=== PATIENT | male | born 1980 ===

== ENCOUNTER 2021-05-17 06:45 | Day surgery (SDC) | payer OTHER ==
[~2021-05-17] VITALS: Ht 167.6 cm; Wt 75.0 kg
[~2021-05-17 06:45] MED LIST: ACETAMINOPHEN 500 MG TABLET PO ONE; ALBU2.5V8 INH; DOCU100C28 PO; FAMO20TA5 PO; FLUT1AER8 IH; IBUP-1027 PO; IPRA0.2S5 IH; IV RINGERS,LACTATED 1000ML 1,000 ML IV SCH; PROCHLORPERAZINE 10 MG/2 ML VIAL. IVP PRN; ceFAZolin SODIUM IV Push 1 GM VIAL. IVP ONE; fentaNYL PF VIAL 100 MCG/2 ML VIAL IVP PRN
[2021-05-17] MEDS ORDERED: fentaNYL PF VIAL 100 MCG/2 ML VIAL ONE ×2 (06:51→07:58)
[2021-05-17] MEDS ORDERED: ROCURONIUM 50 MG/5 ML VIAL. ONE (06:51)
[2021-05-17] MEDS ORDERED: MIDAZOLAM HCL/PF 2 MG/2 ML VIAL. ONE (06:51)
[2021-05-17 06:56] VITALS: BP 131/81
[2021-05-17] MEDS ORDERED: DEXAMETHASONE SOD PHOS 4 MG/ML VIAL ONE (06:56)
[2021-05-17] MEDS ORDERED: PROPOFOL 10 MG/ML (20ML) VIAL. IV ONE (06:56)
[2021-05-17] MEDS ORDERED: ONDANSETRON PF 4 MG/2 ML VIAL. ONE ×2 (06:56→08:51)
[2021-05-17] MEDS ORDERED: LIDOCAINE 2% PF 5 ML VIAL. ONE (06:56)
[2021-05-17] MEDS ORDERED: SURGICEL HEMOSTAT 4X8 EACH. ONE (07:05)
[2021-05-17] MEDS ORDERED: BUPIVACAINE-EPI 0.25%-1:200000 MPF 30 ML VIAL. ONE (07:05)
[2021-05-17] MEDS ORDERED: GLYCOPYRROLATE 1 MG/5 ML VIAL. ONE (08:16)
[2021-05-17] MEDS ORDERED: NEOSTIGMINE METHYLSULFATE 5 MG/5 ML SYRINGE. ONE (08:16)
--- NOTE | 2021-05-17 08:24 | PDOC4 ---
Operative Note Operative Note Date: May 172020 at 820 Preoperative diagnosis: Chronic cholecystitis cholelithiasis Postoperative diagnosis: Same Procedure: Laparoscopic cholecystectomy with fluorescein cholangiography Surgeon: Henrique Specimen: Gallbladder Dictation: Patient is a 41-year-old male with complaints of right upper quadrant abdominal pain ultrasound showing porcelain gallbladder with stones. Procedure of laparoscopic cholecystectomy was explained to the patient detail risk benefits were also discussed including bleeding infection injury to intra- abdominal contents possible necessitating further open operations alternatives to this procedure also discussed with the patient who seemed to understand and gave both verbal and written consent had a procedure performed. Patient was taken to the operating room placed in the supine position general anesthesia was initiated once patient was sleeping intubated his abdomen was prepped and draped usual sterile fashion using ChloraPrep. An area just below the umbilicus was injected with quarter percent Marcaine with epinephrine incision was made 11 blade scalpel and a varies needle was placed within the abdomen creating pneumoperitoneum once this was complete 11 mm port was placed in a 5 mm camera was placed within the abdomen. The abdomen was inspected no other abnormalities noted. A 5 mm port was placed in the epigastrium a 5 mm port was placed in the right midabdomen and a 5 mm port was placed in the right lateral abdomen all under direct visualization. The dome of the gallbladder grasped and retracted cephalad there is quite a few adhesions from omentum to the gallbladder these were taken down with blunt dissection a second grasper was used to grasp the infundibulum and retracted laterally exposing the triangle of adherent tissues the triangle were taken down exposing the cystic duct and cystic artery the fluorescein dye was visualized showed dye within the common bile duct and the cystic duct the cystic duct was doubly clipped and transected the cystic artery was also doubly clipped and transected the gallbladder was taken off the liver with hook electrocautery placed in Endo Catch bag removed the umbilicus right upper quadrant is irrigated suctioned dry hemostasis deemed to be appropriate the pneumoperitoneum was reduced all ports were removed the fascial defect at the umbilicus was closed with a [id number] 0 Vicryl suture and the skin was reapproximated all port sites for subcuticular Monocryl Mastisol Steri-Strips and island dressings were applied. Patient was awakened and extubated in the operating room taken to recovery in stable condition all sponge instrument needle counts listed as correct estimated blood loss 20 mL FAUSTO KESSLER MD May 17, 2021 08:24
--- NOTE | 2021-05-17 08:27 | DISCH ---
DISCHARGE INSTRUCTIONS Condition on Discharge Condition on Discharge: Stable Activity After Discharge Activity Instructions for Disc: Avoid exertion Other activity instructions: No lifting more than 20 pounds for 2 weeks Diet after Discharge Diet after Discharge: Low Fat Wound Incision Care Other wound/incision instructi: May shower in 24 hours Contacting the after DC Call your doctor for: If your condition worsens Follow-Up Follow up with: Dr. Kessler in 2 weeks FAUSTO KESSLER MD May 17, 2021 08:27
[2021-05-17] MEDS ORDERED: MORPHINE SULFATE 2 MG/ML INJ. ONE (08:42)
[2021-05-17] MEDS: MORPHINE SULFATE 2 MG/ML INJ. IVP PRN ×2 (08:48→08:58)
[2021-05-17] MEDS ORDERED: HYDROmorphone 2 MG/ML VIAL ONE (08:51)
[2021-05-17] MEDS: HYDROmorphone 2 MG/ML VIAL IVP PRN ×3 (09:04→09:34)
[2021-05-17] MEDS ORDERED: ONDANSETRON PF 4 MG/2 ML VIAL. IVP ONE (09:15)
[2021-05-17 09:26] VITALS: BP 149/89
--- NOTE | 2021-05-21 17:06 | PATHOLOGY ---
[facility] Accession Number: [id number] . 01 Material submitted: . gallbladder - GALLBLADDER . 01 Clinical history: . PORCELINE GALLBLADDER LAP NILES . 02 Diagnosis: Gallbladder, laparoscopic cholecystectomy: - Cholelithiasis. - Chronic cholecystitis with increased eosinophils. ([facility]; 05/21/2021) [facility] 05/21/2021 0956 Local . 02 Comment: There is no evidence of malignancy. ([facility]; 05/21/2021) . 02 Electronically signed: . Elmer Garcia MD, Pathologist NPI- [id number] . 01 Gross description: . Fixative: Formalin Labeled: Gallbladder Specimen received: Intact gallbladder Dimensions: 6.6 x 2.7 x 2.1 cm Serosa: Light [place] and adipose covered Lymph node: None identified Mucosa: Velvety, bile-stained with some focally smooth patches Average wall thickness: Up to 0.2 cm Calculi: Present, black-yellow and friable Abnormalities: None identified . A1- Load Out Person body, fundus, and the cystic duct margin. ([facility]; 05/17/2021) [facility] 05/17/2021 1801 Local . 02 Pathologist provided ICD-10: K80.10 . 02 CPT . 495415 Specimen Comment: A courtesy copy of this report has been sent to [phone] Specimen Comment: [phone] Specimen Comment: Report sent to / DR COLEMAN Performed at: [facility] [address], [place], [place] [id number] MD Robe Bolaños MD Phone: [phone] Performed at: 02 [facility] [address], [place] [id number] MD Elmer Garcia MD Phone: [phone]
== END 2021-05-17 09:50 | disposition home or self-care (01) ==
LOC: SURG 06:45 → EEVIPCON 08:00 → SURG 09:50
PROVIDERS: ATTEND Surgery
DX: K80.10 Calculus of gallbladder with chronic cholecystitis without obstruction (principal); J44.9 Chronic obstructive pulmonary disease, unspecified; K21.9 Gastro-esophageal reflux disease without esophagitis; Z79.899 Other long term (current) drug therapy; Z98.890 Other specified postprocedural states; Z72.89 Other problems related to lifestyle
CPT/HCPCS: 47562; 88304; A4364; A4930; A6219; J0690; J1100; J1170; J2250; J2270; J2405; J2704; J2710; J3010; J3490; A4657